=== PATIENT | male | born 1935 | race Caucasian/White ===

== ENCOUNTER 2017-03-10 08:12 | Emergency (ER) | payer MEDICARE ==
--- NOTE | 2017-03-10 10:26 | ED ---
Gladys Toney Rebecca, scribed for Ramy Mccallum MD on 03/10/17 at 0837 . Hypertension - HPI Summary HPI Summary: Pt is an 81 y/o M BIBA who comes to ED p/w asymptomatic HTN. Reports he did not want to be brought to the ED today, but he took his BP this morning upon waking up (approximately 0800) and it was elevated (240/120). Sx have been constant since onset. Sx aggravated and alleviated by nothing. Denies any complaints, including CHUN. PMHx HTN. States his HTN has been under control. Confirms he has been compliant with medication, including taking it this morning. PCP is Dr. Stephenson. - History of Current Complaint Chief Complaint: EDGeneral Stated Complaint: HIGH BP Time Seen by Provider: 03/10/17 08:29 Hx Obtained From: Patient Onset/Duration: Started Minutes Ago - About 0800 this morning Timing: Constant Reported Blood Pressure Prior To Arrival: 240/120 Aggravating Factor(s): Nothing Alleviating Factor(s): Nothing Associated Signs & Symptoms: Negative - Allergies/Home Medications Allergies/Adverse Reactions: Allergies Allergy/AdvReac Type Severity Reaction Status Date / Time No Known Allergies Allergy Verified 10/21/14 09:04 Home Medications: Home Medications Amlodipine Besylate [Norvasc 2.5 mg tab] 2.5 mg PO DAILY 03/10/17 [History Confirmed 03/10/17] PMH/Surg Hx/FS Hx/Imm Hx Endocrine/Hematology History: Denies: Hx Diabetes Cardiovascular History: Reports: Hx Hypertension Denies: Hx Coronary Artery Disease - Surgical History Surgery Procedure, Year, and Place: appendectomy age 9. right knee surgery/ meniscus age 20. torn retina. 3 hernia repairs/inguinal Infectious Disease History: No Infectious Disease History: Denies: Traveled Outside the [place] in Last 30 Days - Family History Known Family History: Positive: Hypertension - Social History Alcohol Use: "weekends ... not too much" Alcohol Amount: weekends Substance Use Type: Reports: None Smoking Status (MU): Never Smoked Tobacco Review of Systems Positive: Other - asymptomatic HTN Negative: Headache All Other Systems Reviewed And Are Negative: Yes Physical Exam - Summary Physical Exam Summary: Gen: well-appearing, no pain distress Skin: warm, color reflects adequate perfusion, dry Head: normal Eyes: EOMI, NAEEM ENT: normal Neck: supple, nontender Resp: CTA, breath sounds present Cardio: RRR Abd: soft, nontender Bowel: present Musc: normal, strength/ROM intact Neuro:sensory/motor intact, A&O x3, no focal neurological deficits. Difficulty findings words, which pt states has been chronic for multiple years. Psych: affect/mood appropriate Triage Information Reviewed: Yes Vital Signs On Initial Exam: Initial Vitals Temp Pulse Resp BP Pulse Ox 97.8 F 63 20 170/83 98 03/10/17 08:20 03/10/17 08:20 03/10/17 08:20 03/10/17 08:20 03/10/17 08:20 Vital Signs Reviewed: Yes Diagnostics - Vital Signs Vital Signs Temp Pulse Resp BP Pulse Ox 03/10/17 08:20 97.8 F 63 20 170/83 98 - Laboratory Lab Statement: Any lab studies that have been ordered have been reviewed, and results considered in the medical decision making process. National Institutes Of Health - NIH Scale Level of Consciousness: Alert/Keenly Responsive Ask Patient the Month and His/Her Age: Both Correct Ask Pt to Open/Close Eyes and Network Lead/Release Non-Paretic Hand: Both Correctly Best Gaze (Only Horizontal Eye Movement): Normal Visual Field Testing: No Visual Loss Facial Paresis-Pt to Smile & Close Eyes or Grimace Symmetry: Normal/Symmetrical Motor Function - Right Arm: No Drift-Holds 10 Seconds Motor Function - Left Arm: No Drift-Holds 10 Seconds Motor Function - Right Leg: No Drift-Holds 10 Seconds Motor Function - Left Leg: No Drift-Holds 10 Seconds Limb Ataxia-Must be out of Proportion to Weakness Present: Absent Sensory (Use Pinprick to Test Arms/Legs/Trunk/Face): Normal Best Language (Describe Picture, Name Items): Some Loss - Chornic for years, per pt Dysarthria (Read Several Words): Normal Extinction and Inattention: No Abnormality Total Score: 1 Re-Evaluation - Re-Evaluation First Eval Re-Evaluation Time: 08:48 Change: Unchanged Comment: Pt reports difficulty finding words has been chronic. He declines a Head CT and any lab work. Second Eval Re-Evaluation Time: 10:10 Change: Improved Comment: Pt is doing well. BP is currently 160/84. Confirms that he never experienced any CP, CHUN or SOB. Pt continued to decline a work up. He feels comfortable going home at this time. Hypertension Course/Dx - Course Course Of Treatment: Pt is an 81 y/o M BIBA with a CC of asymptomatic HTN this morning at home (240/120). Denies any other complaints, including CHUN. PMHx HTN for which he is compliant with medications and has had under control recently. NIH score of 1 (chronic difficulty finding words). Pt refuses a head CT and any lab work. PATIENT REPORTS NO NEW WEAKNESS/NUMBNESS/CHANGE IN SPEECH OR VISION/ CHEST PAIN/SHORTNESS OF BREATH OR OTHER SYMPTOMS WHEN HIS BLOOD PRESSURE WAS ELEVATED AT HOME. PATIENT REPORTS THE WORD FINDING DIFFICULTY IS CHRONIC; "I ALWAYS TALK LIKE THIS". DISCUSSED LAB WORK/IMAGING WITH PATIENT. HIS BLOOD PRESSURE HAD DECREASED AT THAT TIME AND PATIENT WISHED TO REST AND SEE IF HIS BP WOULD STAY DOWN AND NO PROCEED WITH ANY OTHER WORK UP. BP DID STAY DOWN AND PATIENT STAYED ASYMPTOMATIC IN ED. DISCHARGE HOME STABLE. NO CRITICAL CARE TIME. - Diagnoses Provider Diagnoses: Hypertension Discharge - Discharge Plan Condition: Stable Disposition: HOME Patient Education Materials: Hypertension (ED) Referrals: Ebenezer Wade MD [Medical Doctor] - Additional Instructions: FOLLOW UP WITH YOUR DOCTOR. TAKE YOUR BLOOD PRESSURE MEDICATIONS DIRECTED. RETURN TO THE EMERGENCY DEPARTMENT FOR ANY WORSENING OF YOUR CONDITION; CHEST PAIN, SHORTNESS OF BREATH, HEADACHE, CONFUSION, WEAKNESS OR QUESTIONS OR CONCERNS. The documentation as recorded by the Gladys king Rebecca accurately reflects the service I personally performed and the decisions made by me, Ramy Mccallum MD.
[2017-03-10 10:57] VITALS: BP 160/84
== END 2017-03-10 10:56 | disposition home or self-care (01) ==
LOC: ED 08:12
DX: I10 Essential (primary) hypertension (principal)
CPT/HCPCS: 99283

== ENCOUNTER 2017-09-04 18:34 | Inpatient (IN) | payer MEDICARE ==
[2017-09-04] MEDS ORDERED: NS 0.9% 1000 ML* 1,000 ML IV ONE ×4 (18:51→22:19)
--- NOTE | 2017-09-04 19:25 | RAD ---
INDICATION: Syncope COMPARISON: CT brain October 17, 2014 TECHNIQUE: Noncontrast axial source images were acquired from the skull base to the vertex. FINDINGS: Ventricles/sulci: The ventricles and cisterns are normal in size and configuration for age. Brain parenchyma: There is mild periventricular and subcortical white matter change compatible with chronic ischemia. Intracranial hemorrhage:None. Extra-axial spaces: There are no abnormal extra axial fluid collections or evidence of extra-axial mass. Calvarium: There is no calvarial fracture or other calvarial abnormality. Scalp: There is no evidence of scalp or extracalvarial soft tissue abnormality. Paranasal sinuses/mastoid: The paranasal sinuses and mastoid air cells are clear. Other: None. IMPRESSION: Mild chronic microvascular ischemic changes. No acute findings
[2017-09-04 19:29] LABS: Hematocrit 43 % (42-52); Hemoglobin 14.1 g/dl (14.0-18.0); Mean Corpuscular HGB Conc 33 g/dl (31-36); Mean Corpuscular Hemoglobin 30 pg (27-31); Mean Corpuscular Volume 91 fL (80-94); Mean Platelet Volume 8 um3 (7.4-10.4); Red Blood Count 4.69 10^6/ul (4.0-5.4); Red Cell Distribution Width 14 % (10.5-15); White Blood Count 15.3 10^3/ul (3.5-10.8)
--- NOTE | 2017-09-04 19:36 | RAD ---
INDICATION: Syncope COMPARISON: None TECHNIQUE: An AP seated view is submitted. FINDINGS: Bones/Soft Tissues: There are no acute bony findings. Cardiomediastinal: The cardiomediastinal silhouette is normal. Lungs: There are no infiltrates. There is mild hyperinflation Pleura: There are no pleural effusions. Other: None IMPRESSION: HYPERINFLATION. NO ACTIVE DISEASE.
[2017-09-04 19:44] LABS: Albumin 3.9 g/dL (3.2-5.2); BUN/Creatinine Ratio 21.1 (8-20); C Reactive Protein 15.23 mg/L (< 5.00); Calcium 9.4 mg/dL (8.6-10.3); EGFR African American 32.6 (>60); EGFR Non-African American 25.4 (>60); Globulin 2.9 g/dL (2-4); Potassium 3.8 mmol/L (3.5-5.0); Total Bilirubin 0.9 mg/dL (0.2-1.0); Total Protein 6.8 g/dL (6.4-8.9)
[2017-09-04 19:46] LABS: Troponin I 0.13 ng/mL (<0.04)
[2017-09-04 21:21] LABS: Urine Bacteria Absent (Absent); Urine Bilirubin Negative (Negative); Urine Glucose Negative (Negative); Urine Nitrite Negative (Negative)
--- NOTE | 2017-09-04 21:26 | RAD ---
INDICATION: 81-year-old with syncope. Possible neck injury. COMPARISON: None TECHNIQUE: Noncontrast axial source images was performed from the skull base to the thoracic inlet. Coronal and and sagittal reformatted images were generated. FINDINGS: Vertebrae: There is no fracture or acute focal bony lesion. There is minor degenerative changes with minor disc space narrowing with endplate sclerosis at C5-C7. Alignment: The craniocervical junction appears normal. The cervical vertebrae are normally aligned. Central Canal: There are no significant CT abnormalities of the central canal or foramina. MR imaging is a more sensitive method to evaluate the canal and foramina. Intervertebral disc spaces: The remaining disc spaces are maintained. Brain: The visualized brain appears unremarkable. Soft tissues: The visualized soft tissue elements of the neck are unremarkable. The prevertebral soft tissues appear normal. The lung apices are clear. IMPRESSION: NO ACUTE CT FINDINGS.
--- NOTE | 2017-09-04 21:29 | RAD ---
INDICATION: Syncope. Possible back injury COMPARISON: None TECHNIQUE: Noncontrast axial source images was performed from the thoracolumbar junction to the sacrum. Coronal and and sagittal reformatted images were generated. FINDINGS: Vertebrae: There is no fracture or acute focal bony lesion. There is underlying osteopenia. There are mild degenerative changes with multilevel intervertebral disc calcification and mild vacuum disc phenomena with narrowing at L4-L5 and L5-S1. There is marginal osteophyte formation at L4 and L5 Alignment: Minor dextroscoliosis of the lower lumbar spine. Minor lumbar spine straightening. Central Canal: There are no significant CT abnormalities of the central canal or foramina. MR imaging is a more sensitive method to evaluate the canal and foramina. Intervertebral disc spaces: The remaining disc spaces are maintained. Soft tissues: The paravertebral soft tissues are normal. Other: None IMPRESSION: NO ACUTE CT FINDINGS. MILD DEGENERATIVE DISC DISEASE/OSTEOARTHRITIS.
--- NOTE | 2017-09-04 21:30 | RAD ---
INDICATION: Syncope. Possible back injury COMPARISON: None TECHNIQUE: Noncontrast axial source images was performed from the thoracic inlet to the level the hemidiaphragms. Coronal and and sagittal reformatted images were generated. FINDINGS: Vertebrae: There is no fracture or acute focal bony lesion. There are minor age-related osteoarthritic changes. Alignment: There mild upper thoracic spine kyphosis. Central Canal: There are no significant CT abnormalities of the central canal or foramina. MR imaging is a more sensitive method to evaluate the canal and foramina. Intervertebral disc spaces: The disc spaces are maintained. Soft tissues: There are no paravertebral soft tissue abnormalities. IMPRESSION: NO ACUTE CT FINDINGS.
--- NOTE | 2017-09-04 21:49 | ED ---
Louise Toney Alfonso, scribed for Yamilet Rausch MD on 09/04/17 at 1848 . Complex/Multi-Sys Presentation - HPI Summary HPI Summary: LEVEL 5 CAVAET DUE TO UNRESPONSIVE STATUS. This patient is an 81 year old M BIBA to [facility] for unresponsive status noted by police and EMS earlier today. He was found slumped over and drooling in a chair by police. Police presented at the house because his car was left in a pharmacy parking lot for a few days. Symptoms aggravated and alleviated by nothing. Patient responses to painful stimuli. , with dementia and Parkinson's, reports the patient was last noted well yesterday. This patient takes care of his . - History Of Current Complaint Chief Complaint: EDAltMentalStatus Hx Obtained From: EMS Hx From Patient Unobtainable Due To: Other - Unresponsive Onset/Duration: Still Present Timing: Constant Aggravating Factor(s): nothing Alleviating Factor(s): nothing Associated Signs And Symptoms: Positive: Other - Patient response to painful stimuli. - Allergies/Home Medications Allergies/Adverse Reactions: Allergies Allergy/AdvReac Type Severity Reaction Status Date / Time No Known Allergies Allergy Verified 10/21/14 09:04 Home Medications: Home Medications Doxazosin Mesylate [Cardura] 8 - 16 mg PO DAILY 09/04/17 [History Confirmed ] amLODIPine TAB* [Norvasc 5 mg TAB*] 2.5 mg PO DAILY 09/04/17 [History Confirmed 09/04/17] PMH/Surg Hx/FS Hx/Imm Hx Endocrine/Hematology History: Denies: Hx Diabetes Cardiovascular History: Reports: Hx Hypertension Denies: Hx Coronary Artery Disease Opthamlomology History: Denies: Hx Legally Blind EENT History: Denies: Hx Deafness - Surgical History Surgery Procedure, Year, and Place: appendectomy age 9. right knee surgery/ meniscus age 20. torn retina. 3 hernia repairs/inguinal Infectious Disease History: No Infectious Disease History: Denies: Traveled Outside the [place] in Last 30 Days - Family History Known Family History: Positive: Hypertension - Social History Alcohol Use: "weekends ... not too much" Alcohol Amount: weekends Hx Substance Use: No Substance Use Type: Reports: None Hx Tobacco Use: No Smoking Status (MU): Never Smoked Tobacco Review of Systems Negative: Fever Neurological: Other - Unresponsive status, response to painful stimuli. All Other Systems Reviewed And Are Negative: No Physical Exam - Summary Physical Exam Summary: VITAL SIGNS: Reviewed. GENERAL: Patient is an elderly and nourished male who is lying comfortable in the stretcher. Patient is not in any acute respiratory distress. HEAD AND FACE: No signs of trauma. No ecchymosis, hematomas or skull depressions. No sinus tenderness. EYES: PERRLA, EOMI x 2, No nystagmus. Ptosis with some injected conjunctiva in the right eye. EARS: Hearing grossly intact. Ear canals and tympanic membranes are within normal limits. MOUTH: Oropharynx within normal limits. NECK: Supple, trachea is midline, no adenopathy, no JVD, no carotid bruit, no c- spine tenderness, neck with full ROM. CHEST: Symmetric, no tenderness at palpation LUNGS: Clear to auscultation bilaterally. No wheezing or crackles. CVS: Regular rate and rhythm, S1 and S2 present, no murmurs or gallops appreciated. ABDOMEN: Soft, non-tender. No signs of distention. No rebound no guarding, and no masses palpated. Bowel sounds are normal. BACK: T and L spine tenderness. EXTREMITIES: FROM in all major joints, no cyanosis or clubbing. Bilateral LE edema +1. NEURO: Alert and unresponsive. No acute neurological deficits. Speech is normal and follows commands. Babinskis bilaterally upward. SKIN: Dry and warm. Left upper thigh large area of erythema. Triage Information Reviewed: Yes Vital Signs On Initial Exam: Initial Vitals Temp Pulse Resp BP Pulse Ox 97.2 F 89 13 148/85 100 09/04/17 18:40 09/04/17 18:40 09/04/17 18:40 09/04/17 18:40 09/04/17 18:40 Vital Signs Reviewed: Yes Completion Of Physical Exam Limited Due To: Level 5 Diagnostics - Vital Signs Vital Signs Temp Pulse Resp BP Pulse Ox 09/04/17 18:40 97.2 F 89 13 148/85 100 - Laboratory Result Diagrams: 09/04/17 19:07 09/04/17 19:07 Lab Statement: Any lab studies that have been ordered have been reviewed, and results considered in the medical decision making process. - Radiology CXR Radiology Interpretation Completed By: Radiologist - HYPERINFLATION. NO ACTIVE DISEASE. ED physician has reviewed this radiology report and agrees. - CT Brain CT Interpretation Completed By: Radiologist - Mild chronic microvascular ischemic changes. No acute findings. ED physician has reviewed this radiology report and agrees. C-Spine CT Interpretation Completed By: Radiologist - NO ACUTE CT FINDINGS. ED physician has reviewed this radiology report and agrees. T-Spine CT Interpretation Completed By: Radiologist - NO ACUTE CT FINDINGS. ED physician has reviewed this radiology report and agrees. L-Spine CT Interpretation Completed By: Radiologist - NO ACUTE CT FINDINGS. MILD DEGENERATIVE DISC DISEASE/OSTEOARTHRITIS. ED physician has reviewed this radiology report and agrees. - EKG 190 Cardiac Rate: NL EKG Rhythm: Sinus Rhythm - 91 BPM EKG Interpretation: RBBB Complex Multi-Symp Course/Dx Assessment/Plan: In the ED course the patient was given IV fluids and sodium bicarbonate. Consulted Dr. Villanueva (hospitalist) at 2144 who agrees to admit. Patient will be admitted with follow up from hospitalist. The patient is agreeable with this plan. - Diagnoses Provider Diagnoses: Rhabdomyolysis, Dehydration, Acute renal insufficiency, Unresponsive Discharge - Discharge Plan Condition: Stable Disposition: ADMITTED TO [facility] Referrals: Juwan Stephenson DO [Primary Care Provider] - The documentation as recorded by the Louise king Alfonso accurately reflects the service I personally performed and the decisions made by Miracle peralta Abdul, MD.
[2017-09-04] MEDS ORDERED: Sodium Bicarbonate 8.4% IV* 100 MEQ in NS 0.45% 1000 ML BAG* 1,000 ML IV ONE (22:00)
[2017-09-04] MEDS ORDERED: Ondansetron INJ* 2 MG/ML VIAL IV PRN (22:08)
[2017-09-04] MEDS ORDERED: Docusate CAP* 100 MG PO PRN (22:08)
[2017-09-04] MEDS ORDERED: Acetaminophen TAB* 325 MG PO PRN (22:08)
[2017-09-04] MEDS ORDERED: Senna TAB PO PRN (22:08)
[2017-09-04] MEDS ORDERED: levETIRAcetam IV* 750 MG in NS 0.9% 100 ML* 100 ML IVPB ONE (22:12)
[2017-09-04] MEDS ORDERED: Aspirin SUPP* 300 MG PR ONE (22:12)
[2017-09-04] MEDS ORDERED: Piperacillin/Tazobac ADVAN(*) 3.375 GM in NS 0.9% 100 ML* 100 ML IVPB ONE (22:18)
[2017-09-04] MEDS ORDERED: LEVETIRACETAM IVPB ONE (23:00)
[2017-09-04] MEDS ORDERED: Zosyn per Pharmacy* NOTE FOLLOW UP SCH (23:00)
[2017-09-04] MEDS ORDERED: [UNRECOGNIZED DRUG - OTHER] IVPB ONE (23:00)
[2017-09-04 23:28] LABS: Magnesium 2.6 mg/dL (1.9-2.7)
[2017-09-04 23:48] LABS: PCO2 Arterial 34 mmHg (35-45)
[2017-09-04 23:54] LABS: TSH (Thyroid Stimulating Horm) 4.79 mcIU/mL (0.34-5.60)
--- NOTE | 2017-09-05 01:43 | HP ---
CC: Juwan Stephenson DO * HISTORY AND PHYSICAL: DATE OF ADMISSION: 09/04/17. TIME OF EVALUATION: 2100. PRIMARY CARE PHYSICIAN: Juwan Stephenson DO CHIEF COMPLAINT: Altered mental status. HISTORY OF PRESENT ILLNESS: This is an 81-year-old male with past medical history of hypertension and question of dementia, who presented to the emergency room via EMS after police found him unresponsive in his chair. Patient is unable to answer any questions. The history is obtained from the ER staff, EMS, the son, which according to the son the patient has declined and they have been concerned about him and his at home living independently. The usually takes care of the who has Parkinson's and dementia. The son, who is in [place], who is the healthcare proxy, feels that the patient's dementia has gotten worse. It appears that patient drove to the pharmacy about a week ago and it appears that he walked home, then the pharmacy had police look into the car that was left in the parking lot. The police went and checked on him a week ago. He was alert and oriented, but they were concerned about how his home was being maintained and they recommended he go to the emergency room. He refused. The car remained in the parking lot. The pharmacy again called the police to have it towed. The police recognized that this was the same elderly couple, went back to their home, went into the home, they found the patient in the chair sitting upright unresponsive, labored and shallow breathing with a thready pulse. The was also there as well and they brought both into the emergency room for further evaluation. On my encounter, the patient is able to open his left eye, keeps the right eye closed and then he does repetitive eye blinking. He is able to say yes to me, but then is not able to follow any commands or any further verbal interaction. In the emergency room, the patient had labs, imaging. He was given 2 L of normal saline and was referred to the hospitalist service for further evaluation. PAST MEDICAL HISTORY: Per the records, hypertension, history of diverticulosis , history of right inguinal hernia, and the question of history of dementia. MEDICATIONS: Per records. 1. Amlodipine 2.5 mg daily. 2. Cardura 8 to 16 mg daily. ALLERGIES: No known drug allergies. FAMILY HISTORY: Unable to obtain. SOCIAL HISTORY: Limited. We do know he lives at home with his who supposedly he takes care of. He has been independent of his ADLs. His son, Archie Schwartz, is in [place], who is the healthcare proxy. He is faxing all the paper-work over. His phone number is [phone]. He did relay that his father and his mother are both DNR/DNI. MOLST form will be completed this evening. REVIEW OF SYSTEMS: Unable to obtain due to the patient's altered mental status. PHYSICAL EXAMINATION GENERAL: No acute distress, does awake to voice, will open his left eye, but unable to follow any commands or answer any questions appropriately. VITAL SIGNS: Temp 97.2, heart rate 90, respiratory rate 15, oxygen saturation 100% on 4 L, blood pressure 148/85. HEENT: Head normocephalic. Pupils are 2 mm and sluggish. His right eye needs to be opened. He has a more opacified right eye. Oropharynx: Mucous membranes are dry. NECK: Supple. No lymphadenopathy. RESPIRATORY: Diminished breath sounds. Limited respiratory effort. CARDIAC: Regular rate and rhythm. Soft systolic murmur heard throughout. ABDOMEN: Positive bowel sounds. Soft, nontender, nondistended. EXTREMITIES: Warm, trace edema, +1 DPs. NEUROLOGIC: As mentioned. The patient does repetitive eye squeezing and some rhythmic mouth movement. Will open his left eye and has verbalized yes to me and has responded to his name. Did not make any eye contact, has not made any spontaneous lower extremity movement. His right hand seems more contracted than his left. DERM: Per nursing staff, he has a right buttock ulcer and bilateral elbow skin breakdown. LABORATORY DATA: White count 15.3, hemoglobin 14.1, hematocrit 43, platelets 180. INR 0.99. Sodium 142, potassium 3.8, chloride 106, bicarb 24, BUN 52, creatinine 2.46, glucose 147. Lactic acid 3.4. AST 158, ALT 95. Total CK 5035. Troponin 0.13. CRP 15. Amylase 136. Urine; trace ketones, +3 blood, present squamous cells. RADIOGRAPHIC DATA: Head CT, mild chronic microvascular ischemic changes. No acute findings. Chest x-ray; hyperinflation, no active disease. Cervical spine CT; no acute CT findings, mild degenerative disk disease, osteoarthritis. Thoracic spine CT, no acute CT findings. EKG shows normal sinus rhythm with artifact noted. ASSESSMENT: This is an 81-year-old male with a past medical history of hypertension, question dementia, who was found at home unresponsive, presents with significant altered mental status, concern for a stroke and possible seizure activity. 1. Altered mental status. Assessment: As above. Concern for stroke and possible seizure like activity. I did speak with Dr. Montilla who recommended loading him with Keppra x1 at 750 mg. We will order an MRI and EEG in the morning as well as neuro checks. We will also check an ammonia and ABG to rule out any underlying causes that may be contributing to his altered mental status. We will place him in the ICU for close monitoring. We will start him on aspirin suppositories, keep him NPO until he is safe to have swallow evaluation and follow up with Neurology in the morning. We will also put him for PT and OT once he is more stable. We will also place him on seizure precautions. 2. Acute kidney injury and rhabdo. Assessment: Likely from being unresponsive at minimum 2 to 3 days. Plan: He has gotten 2 L of normal saline. We will continue another liter and place him on normal saline at 150 cc an hour and repeat his labs in the morning. Renally dose his meds. 3. Elevated troponin. Assessment: Suspect this is demand ischemia in the setting of his unresponsive state for several days. Plan: We will trend his troponins and check an echo in the morning. 4. Leukocytosis. Concern for an underlying infectious etiology with being unresponsive for several days. Plan: We will cover him empirically with Zosyn for now until urine and blood cultures are back and continue IV fluids. 5. FEN: As mentioned, keep him NPO. If he becomes more awake, we will do a bedside swallow and IV fluids. 6. DVT prophylaxis: The patient scores high risk. We will place him on heparin subcu t.i.d. CODE STATUS: I did speak with the son, Archie Schwartz, who stated that he is a DNR/DNI. We will place a social work consult as well in the setting of both the patient and his are now inpatients because the cannot be cared for at home. The son is planning to arrive here tomorrow evening from [place]. TIME SPENT: Patient time, greater than 60 minutes was spent doing history and physical, more than half the time spent in direct patient contact with critical care time. Patient is being admitted to the ICU with complex medical problems. [id number]/CPS #: [id number] JOLLY
[2017-09-05] MEDS: ZOSYN 3.375 GM Q8H per EXTENDED INFUSION IVPB SCH ×4 (03:31→11:45)
[2017-09-05] MEDS: NS 0.9% 1000 ML* 1,000 ML IV SCH (06:00)
[2017-09-05] MEDS: Heparin VIAL(*) 5000 UNITS/ML VIAL (FIVE THOUSAND) SUBCUT SCH ×3 (06:00→22:03)
[2017-09-05 06:53] LABS: Hematocrit 42 % (42-52); Mean Corpuscular HGB Conc 34 g/dl (31-36); Mean Corpuscular Hemoglobin 30 pg (27-31); Mean Corpuscular Volume 90 fL (80-94); Mean Platelet Volume 7 um3 (7.4-10.4); Red Blood Count 4.61 10^6/ul (4.0-5.4); Red Cell Distribution Width 14 % (10.5-15); White Blood Count 15.5 10^3/ul (3.5-10.8)
[2017-09-05 07:09] LABS: Albumin 2.9 g/dL (3.2-5.2); BUN/Creatinine Ratio 25.7 (8-20); Calcium 8.5 mg/dL (8.6-10.3); EGFR African American 34.1 (>60); EGFR Non-African American 26.5 (>60); Globulin 2.5 g/dL (2-4); Potassium 3.8 mmol/L (3.5-5.0); Total Protein 5.4 g/dL (6.4-8.9)
[2017-09-05] MEDS ORDERED: Perflutren Lipid Microsphere* 3 ML VIAL ONE (08:11)
--- NOTE | 2017-09-05 09:52 | ECHO ---
Patient: [facility] Rec#: [id number] : 1935 Date: 09/05/2017 Age: 81y Height: 182.88 cm / 72.0 in Weight: 77.11 kg / 170.0 lbs Sex: M BSA: 1.99 Room#: [facility] Admit Date#: 09/04/2016 Type: Inpatient Referring: Jyalin Villanueva Reading: Shagufta Hilario MD Cyberathlete: Adela Connell FREDDY CC: Seema MCCARTHY,Juwan Transthoracic Echocardiogram Indication: Elevated Troponin BP: 121/86 HR: 83 Rhythm: NSR with PVCs Findings History: Found unresponsive at home,?history of dementia,HTN. Technical Comments: The study quality is fair. Completed at 0855. Left Ventricle: The left ventricular chamber size is normal. Mild concentric left ventricular hypertrophy is observed. The left ventricle appears hyperdynamic. The estimated ejection fraction is 60-65%. Abnormal left ventricular diastolic filling is observed, consistent with impaired relaxation. Left Atrium: The left atrial cavity size is abnormally small. Right Ventricle: The right ventricular cavity size is normal. The right ventricular global systolic function is normal. Right Atrium: The right atrial cavity size is normal. Aortic Valve: The aortic valve is trileaflet. There is no evidence of aortic regurgitation. There is no evidence of aortic stenosis. Mitral Valve: The mitral valve leaflets are mildly thickened. There is no evidence of mitral regurgitation. Tricuspid Valve: The tricuspid valve leaflets are normal. There is mild tricuspid regurgitation. There is evidence of mild pulmonary hypertension. There is no tricuspid stenosis. Pulmonic Valve: The pulmonic valve appears normal. There is trace to mild pulmonic regurgitation. There is no pulmonic stenosis. Pericardium: The pericardium appears normal. Aorta: There is no dilatation of the ascending aorta. The aortic arch is not well visualized. There is moderate dilatation of the aortic root. Pulmonary Artery: The main pulmonary artery appears normal. Venous: The inferior vena cava appears normal in size. There is an approximate 50% respiratory change in the inferior vena cava dimension. Pt unable to cooperate with sniff maneuver. Contrast: Definity was used to optimize study. 3 ml used. Intravenous contrast was used to enhance endocardial border definition. Conclusions Mild concentric left ventricular hypertrophy is observed. The left ventricle appears hyperdynamic. The estimated ejection fraction is 60-65%. Abnormal left ventricular diastolic filling is observed, consistent with impaired relaxation. The right ventricular global systolic function is normal. There is mild tricuspid regurgitation. There is evidence of mild pulmonary hypertension: 39 mmHg. No prior echo to compare. Measurements Name Value Normal Range RVIDd (AP) 2D 2.5 cm (0.9 - 2.6) RVDdMajor (2D) 3.3 cm (2.2 - 4.4) RAd ISD 4CH 5.3 cm (3.4 - 4.9) RA (A4C)W 4.5 cm (2.9 - 4.6) IVSd (2D) 1.5 cm (0.6 - 1) LVPWd (2D) 1 cm (0.6 - 1) LVIDd (2D) 3.7 cm (3.6 - 5.4) LVIDs (2D) 2.4 cm - LV FS (2D) 36 % (25 - 45) Aortic Annulus 2.2 cm (1.4 - 2.6) Ao root diameter (2D) 4.3 cm (2.1 - 3.5) Ascending Ao 3.4 cm (2.1 - 3.4) LA dimension (AP) 2D 1.9 cm (2.3 - 3.8) LAd ISD 4CH 4.5 cm (2.9 - 5.3) LA ISD 4CH W 3.7 cm (2.5 - 4.5) Name Value Normal Range LA ESV SP 4CH (A/L) 49 ml - LA ESV SP 2CH (A/L) 54 ml - LA ESV BP (A/L) 58 ml - LA ESV BP (A/L) index 29.18 ml/m2 - LA ESV SP 4CH (MOD) 44 ml - LA ESV SP 2CH (MOD) 49 ml - Name Value Normal Range MV E-wave Vmax 0.4 m/sec - MV deceleration time 253 msec - MV A-wave Vmax 0.7 m/sec - MV E:A ratio 0.63 ratio - LV septal e' Vmax 0.06 m/sec - LV lateral e' Vmax 0.08 m/sec - LV E:e' septal ratio 6.67 ratio - LV E:e' lateral ratio 4 ratio - Name Value Normal Range AV Vmax 1.3 m/sec - AV VTI 26.6 cm - AV peak gradient 4.85 mmHg - AV mean gradient 3.69 mmHg - LVOT Vmax 0.8 m/sec - LVOT VTI 19 cm - LVOT peak gradient 2.23 mmHg - LVOT mean gradient 1.18 mmHg - Name Value Normal Range TR Vmax 2.8 m/sec - TR peak gradient 31 mmHg - RAP 8 mmHg - RVSP 39 mmHg - IVC diameter 1.1 cm - Name Value Normal Range PV Vmax 0.8 m/sec - PV peak gradient 2.86 mmHg -
--- NOTE | 2017-09-05 10:01 | PN ---
Subjective Date of Service: 09/05/17 Interval History: Patient seen this morning. Continues to be unresponsive. Family History: Unchanged from Admission Social History: Unchanged from Admission Past Medical History: Unchanged from Admission Objective Active Medications: Acetaminophen (Tylenol Tab*) 650 mg PO Q4H PRN Aspirin (Aspirin Supp*) 300 mg [place] DAILY EVAN Docusate Sodium (Colace Cap*) 100 mg PO BID PRN Heparin Sodium (Porcine) (Heparin Vial(*)) 5,000 units SUBCUT Q8HR EVAN Sodium Chloride (Ns 0.9% 1000 Ml*) 1,000 mls @ 150 mls/hr IV PER RATE EVAN Piperacillin Sod/Tazobactam (Sod 3.375 gm/ Sodium Chloride) 100 mls @ 25 mls/ hr IVPB Q8H EVAN Piperacillin Sod/Tazobactam (Sod 3.375 gm/ Sodium Chloride) 100 mls @ 25 mls/ hr IVPB Q8H EVAN Piperacillin Sod/Tazobactam (Sod 3.375 gm/ Dextrose) 100 mls @ 25 mls/hr IVPB Q8H EVAN Ondansetron HCl (Zofran Inj*) 4 mg IV Q4H PRN Pharmacy Consult (Zosyn Per Pharmacy*) 1 note FOLLOW UP .ZOSYN PER PHARMACY EVAN Senna (Senokot Tab*) 1 tab PO BID PRN Vital Signs 09/04/17 09/04/17 09/04/17 23:00 23:03 23:30 Temperature Pulse Rate 87 85 81 Respiratory 10 10 13 Rate Blood Pressure 148/84 151/88 (mmHg) O2 Sat by Pulse 99 100 99 Oximetry 09/04/17 09/05/17 09/05/17 23:58 00:00 00:11 Temperature 97.5 F 94.6 F Pulse Rate 84 85 92 Respiratory 11 8 16 Rate Blood Pressure 129/81 129/81 (mmHg) O2 Sat by Pulse 96 97 96 Oximetry 09/05/17 09/05/17 09/05/17 08:00 08:59 09:00 Temperature 98.4 F 98.4 F Pulse Rate 73 77 Respiratory 13 22 17 Rate Blood Pressure 130/82 135/77 (mmHg) O2 Sat by Pulse 100 96 Oximetry Oxygen Devices in Use Now: None Appearance: Elderly, M, laying in bed, unresponsive to voice or sternal rub Eyes: No Scleral Icterus Ears/Nose/Mouth/Throat: - - Dry MM Neck: - - Enlarged thyroid Respiratory: Symmetrical Chest Expansion and Respiratory Effort, Clear to Auscultation Cardiovascular: NL Sounds; No Murmurs; No JVD, RRR Abdominal: NL Sounds; No Tenderness; No Distention Lymphatic: No Cervical Adenopathy Extremities: - - Mild LE pitting edema to mid-shins Skin: No Rash or Ulcers Neurological: - - Unresponsive, pupils reactive, corneal reflex intact, withdraws to pain in LEs, could not get to withdraw to upper extremities, no posturing Lines/Tubes/Other Access: Clean, Dry and Intact Griffiths Result Diagrams: 09/05/17 06:25 09/05/17 06:25 Microbiology and Other Data: Microbiology 09/05/17 01:10 Nasal Screen MRSA (PCR)(ANURAG) - Final Nasal Mrsa Negative Assess/Plan/Problems-Billing Assessment: 81 yo M with reported hx of HTN and possibly dementia found unresponsive at home , found to have EDELMIRA, troponin elevation, rhabdo, lactic acidosis, remains unresponsive, withdraws to pain - Patient Problems (1) Unresponsive state Current Visit: Yes Comment: Apprecaite Neuro input. Concern for possible ischemic event, ?brain stem. Will order clearance plain films to expedite brain MRI. Prelim EEG without clear epileptiform activity. Thyroid enlarged but TSH WNL. Recived Keppra x 1. Continue ASA suppository, continue NPO. After MRI will be able to plan further. Only centrally acting med that is on at home is Oxybutynin. (2) EDELMIRA (acute kidney injury) Current Visit: Yes Comment: Rhabdo. CKs continue to climb. BUN/Cr largely unchanged. Continue IVF, griffiths cath. Monitor CK, BMP daily (3) Troponin level elevated Current Visit: Yes Comment: Mild elevation, likely demand from prolonged unresponsive episode. Echo pending. (4) Leukocytosis Current Visit: Yes Comment: No clear infectious etiology, will continue ABx for the time being. (5) HTN (hypertension) Current Visit: Yes Comment: Reported hx as per daughter. Monitor for now. (6) DVT prophylaxis Current Visit: Yes Comment: HSQ Status and Disposition: Dispo pending MRI
--- NOTE | 2017-09-05 10:51 | RAD ---
INDICATION: MRI clearance COMPARISON: None TECHNIQUE: 2 views the abdomen were obtained. FINDINGS: There are no acute bony or soft tissue abnormalities. Metallic material in the right hemipelvis is most consistent with surgical material. A linear metallic device at the midline pelvis extending below the field of view is most consistent with either a rectal tube or [place] catheter. The bowel gas pattern is normal. There is a moderate amount of stool overlying the renal shadows. There are no obvious coarse calcifications overlying the expected location of the bilateral collecting systems or ureters. IMPRESSION: IATROGENIC DEVICES IN THE LOW ABDOMEN DESCRIBED ABOVE.
--- NOTE | 2017-09-05 10:54 | RAD ---
INDICATION: MRI clearance in a nonverbal patient. COMPARISON: Chest x-ray dated September 04, 2017 TECHNIQUE: Single AP view of the chest was obtained. FINDINGS: The heart and mediastinum exhibit normal size and contour. The lungs are grossly clear. There is no evidence of a large pleural effusion. Visualized bones are normal for the patient's age. IMPRESSION: No radiographic evidence for acute cardiopulmonary abnormality on this single AP view chest x-ray. No metallic devices are seen overlying the chest.
--- NOTE | 2017-09-05 10:55 | RAD ---
Indication: MRI screening Comparison: None. Technique: 2 views of the skull were obtained. Report: The calvarium appears normal in morphology and density. No fractures are identified. Within limitations of skull radiography, the paranasal sinuses appear adequately aerated. Aside from dental amalgam, no metallic material is seen. IMPRESSION: Aside from dental amalgam there is no metallic material overlying the skull.
[2017-09-05] MEDS: Aspirin SUPP* 300 MG PR SCH (11:25)
--- NOTE | 2017-09-05 11:34 | CONS ---
CC: Dr. Stephenson * CONSULTATION REPORT: DATE OF CONSULT: 09/05/17 PATIENT OF: Dr. Villanueva. HISTORY OF PRESENT ILLNESS: This is an 81-year-old man I am asked to evaluate for altered mental status and quadriparesis. History is from Dr. Villanueva last night and from the chart, the patient is unresponsive. The patient has a past history of hypertension and possible dementia and was found in his chair at his home. 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 The pharmacy had police look into the car that was left in the parking lot and the police checked on him a week prior to admission. He was alert and oriented at that point, but they were concerned about how his home is being maintained and they recommended that he go to the ER. He refused. The car remained in the parking lot and when the police were contacted to have a totally checked into his house, he was found in his chair sitting unresponsive with labored and shallowed breathing and he was brought to the emergency room. The was there as well. When he was seen in the ER, he was able to open his left eye. His right eye was closed and he had some repetitive eye blinking. He was able to say yes, but had no specific commands. PAST MEDICAL HISTORY: He has a history of hypertension, possible dementia, history of diverticulosis, and right inguinal hernia. MEDICATIONS: His medications per chart include: 1. Amlodipine 2.5 daily. 2. Cardura 8 to 16 mg daily. ALLERGIES: He has no known allergies. FAMILY HISTORY: Unable to be obtained. 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 His son is the healthcare proxy. REVIEW OF SYSTEMS: Unable to be obtained. PHYSICAL EXAM: Temperature 98.8, pulse 78, respirations 15, blood pressure 131/ 84. His eyes were closed and he did not respond to name or noxious stim either side. Pupils were 2 and sluggish. He did not have any clear nystagmus, but at times but not constantly his eyes would adjust. There was at times some mild varieties of tropia and other times is mild left esotropia and at times his eyes would slowly go over to one side of the other, but much of the time they were midposition. Reflexes were present bilaterally. He had corneal and facial grimace. He had shallow breathing and he had some mouthing. He occasionally would move his mouth. There was no clear facial asymmetry, but this was hard to assess fully given his limited movements. He had no movement of arms and legs. He had positive Babinski's bilaterally. Reflexes were 1 and equal. Chest: Clear. Cardiovascular: Regular rate and rhythm. Abdomen: Soft with positive bowel sounds. He has trace edema. He had a right buttocks ulcer per nursing staff. DIAGNOSTIC STUDIES/LAB DATA: His CT scan was reviewed and showed mild chronic small vessel ischemic changes. CT scan of his C-spine showed no significant problems with his central canal and there were no acute findings. Thoracic spine showed no acute findings and no problems with the central canal. He has some mild degenerative disk disease in his lumbar spine. Blood work is similar this morning as to on admission, his sodium current is 147 , chloride 115. His anion gap when he first presented was 12. His BUN today is 61, creatinine 2.37, glucose 115. His initial lactic acid is 3.4, but on repeat it was 1.8. His calcium is 8.5. He has an AST of 218, ALT of 113 slightly rising since yesterday. His ammonia level is 45. His CPK is 7917 this morning compared to 5035 on admission. His troponin 0.16 and his total protein is 5.4, albumin 2.9, amylase is 136, lipase 15, TSH 4.79. ABG, pH 7.43 , pCO2 34, pO2 73 on admission. Normal INR and PTT. CMP had absent bacteria, present hyaline cast. His white count 15.5, his hematocrit 42, platelets 147. His EEG is currently being done, it shows a generalized slowing with some frontal dominant sharp waves that are sporadic, but so far no clear subclinical seizures. He did receive Keppra last night. IMPRESSION AND PLAN: Mr. Schwartz has had a severe encephalopathy as well as absence of movement in all extremities other than typical withdrawal presumably from spinal reflex in his legs. This picture would either be secondary to diffuse generalized cerebral dysfunction or possibly due to brainstem dysfunction causing bilateral symptoms and significant alteration of consciousness. He does not have significant fever or his white count is not that elevated. I think that it is more likely for this to be ischemic rather than infectious. Blood workup is still in progress. He is getting piperacillin as well as Zosyn and is getting rectal aspirin. We will get an MRI scan of his brain this morning and if decide on further workup depending on that, it is possible that he could have had a diffuse events such as a cardiac arrest that had diffuse hypoxic ischemic encephalopathy that may not show up on his MRI scan. However, I think it may be more likely that his brainstem is involved since there is a discrepancy between how much he can move his face versus the rest of his body, but we need to await further testing to be more sure of things. Thank you for sharing his case. [id number]/[facility] #: [id number] JOLLY
--- NOTE | 2017-09-05 16:38 | RAD ---
Indication: Confusion, stroke. Sagittal and axial T1, axial T2, FLAIR, diffusion and susceptibility weighted images of the brain were obtained. There is restriction of diffusion in several areas throughout both cerebral cortices. This is predominantly in the frontal lobes, parietal lobes posteriorly extending into both occipital lobes. This is suggestive of cortical necrosis and is likely due to a generalized process such is hypoperfusion in a watershed area from hypotension, cardiac arrest or status epilepticus. It could also be seen in hyperammonemic encephalopathy. The brainstem and cerebellum demonstrates no evidence of signal abnormality. No midline shift is noted. Periventricular signal abnormality consistent with chronic ischemic White matter change is noted. The paranasal sinuses, mastoid air cells are unremarkable. IMPRESSION: Fairly symmetric restriction of diffusion primarily involving the cortices of the frontal lobes, posterior parietal lobes and occipital lobes bilaterally. 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
[2017-09-05] MEDS: Piperacillin/Tazobac ADVAN(*) 3.375 GM in D5W 100 ML BAG* 100 ML IVPB SCH (20:30)
[2017-09-06] MEDS: NS 0.9% 1000 ML* 1,000 ML IV SCH (02:43)
[2017-09-06] MEDS: Piperacillin/Tazobac ADVAN(*) 3.375 GM in D5W 100 ML BAG* 100 ML IVPB SCH ×2 (03:54→11:55)
[2017-09-06 05:07] LABS: Hematocrit 35 % (42-52); Hemoglobin 12.1 g/dl (14.0-18.0); Mean Corpuscular HGB Conc 34 g/dl (31-36); Mean Corpuscular Hemoglobin 31 pg (27-31); Mean Corpuscular Volume 90 fL (80-94); Mean Platelet Volume 8 um3 (7.4-10.4); Red Blood Count 3.96 10^6/ul (4.0-5.4); Red Cell Distribution Width 14 % (10.5-15); White Blood Count 11.6 10^3/ul (3.5-10.8)
[2017-09-06 05:27] LABS: Albumin 2.5 g/dL (3.2-5.2); BUN/Creatinine Ratio 29.3 (8-20); Calcium 8.2 mg/dL (8.6-10.3); EGFR African American 31.2 (>60); EGFR Non-African American 24.2 (>60); Globulin 2.1 g/dL (2-4); Potassium 3.9 mmol/L (3.5-5.0); Total Bilirubin 0.7 mg/dL (0.2-1.0); Total Protein 4.6 g/dL (6.4-8.9)
[2017-09-06 05:36] LABS: Troponin I 0.18 ng/mL (<0.04)
[2017-09-06] MEDS: Heparin VIAL(*) 5000 UNITS/ML VIAL (FIVE THOUSAND) SUBCUT SCH ×3 (06:08→22:15)
[2017-09-06] MEDS: Aspirin SUPP* 300 MG PR SCH (08:56)
--- NOTE | 2017-09-06 10:22 | EEG ---
ELECTROENCEPHALOGRAPHY: DATE OF STUDY/DICTATION: 09/05/17 - ROOM #ICU-09 PATIENT OF: Dr. Villanueva. HISTORY: This is an 81-year-old man being evaluated for unresponsiveness to rule out seizures. MEDICATIONS: Include: 1. Aspirin. 2. Zosyn. 3. Colace. 4. Zofran. 5. Senokot. He received a dose of Keppra last night. INTERPRETATION: With the patient comatose, background cerebral activity consists of diffuse irregular delta and theta activity of moderate amplitude. At times, there were some bifrontal sharp waves. No subclinical seizures were noted. IMPRESSION: This EEG is abnormal because of diffuse slowing of background with bifrontal sharp waves consistent with a severe generalized encephalopathy. Bifrontal discharges are consistent with some underlying cerebral irritation with some risk for seizures. [id number]/[facility] #: [id number] MTDD
--- NOTE | 2017-09-06 11:02 | PN ---
Subjective Date of Service: 09/06/17 Interval History: Patient seen this morning. Some UE movement this morning, opened eyes, seemed to attempt to mouth response. Family History: Unchanged from Admission Social History: Unchanged from Admission Past Medical History: Unchanged from Admission Objective Active Medications: Acetaminophen (Tylenol Tab*) 650 mg PO Q4H PRN Aspirin (Aspirin Supp*) 300 mg SD DAILY EVAN Docusate Sodium (Colace Cap*) 100 mg PO BID PRN Heparin Sodium (Porcine) (Heparin Vial(*)) 5,000 units SUBCUT Q8HR EVAN Piperacillin Sod/Tazobactam (Sod 3.375 gm/ Dextrose) 100 mls @ 25 mls/hr IVPB Q8H EVAN Lactated Ringer's (Lactated Ringers 1000 Ml Bag*) 1,000 mls @ 100 mls/hr IV PER RATE EVAN Piperacillin Sod/Tazobactam (Sod 3.375 gm/ Dextrose) 100 mls @ 25 mls/hr IVPB Q8H EVAN Piperacillin Sod/Tazobactam (Sod 3.375 gm/ Sodium Chloride) 100 mls @ 25 mls/ hr IVPB Q8H EVAN Ondansetron HCl (Zofran Inj*) 4 mg IV Q4H PRN Pharmacy Consult (Zosyn Per Pharmacy*) 1 note FOLLOW UP .ZOSYN PER PHARMACY EVAN Senna (Senokot Tab*) 1 tab PO BID PRN Vital Signs 09/05/17 09/05/17 09/05/17 11:00 12:00 13:00 Temperature 98.8 F 98.8 F 98.8 F Pulse Rate 80 93 Respiratory 16 16 14 Rate Blood Pressure 148/87 128/120 (mmHg) O2 Sat by Pulse 100 91 Oximetry 09/05/17 09/05/17 09/05/17 13:01 14:00 14:01 Temperature 98.8 F 98.8 F 98.8 F Pulse Rate 82 87 82 Respiratory 19 20 20 Rate Blood Pressure 100/75 114/71 (mmHg) O2 Sat by Pulse 95 98 99 Oximetry 09/06/17 09/06/17 09/06/17 05:00 06:00 07:00 Temperature 100.2 F 100.2 F 99.9 F Pulse Rate 98 106 103 Respiratory 16 23 17 Rate Blood Pressure 82/55 97/70 86/69 (mmHg) O2 Sat by Pulse 99 100 100 Oximetry 09/06/17 09/06/17 09/06/17 08:00 08:07 09:00 Temperature 99.9 F 99.9 F 98.1 F Pulse Rate 102 Respiratory 22 23 Rate Blood Pressure 104/68 81/60 (mmHg) O2 Sat by Pulse 100 Oximetry Oxygen Devices in Use Now: Nasal Cannula - 2L Appearance: Elderly, M, laying in bed in NAD Eyes: No Scleral Icterus Ears/Nose/Mouth/Throat: - - Dry MM Neck: - - Enlarged thyroid Respiratory: Symmetrical Chest Expansion and Respiratory Effort, Clear to Auscultation Cardiovascular: NL Sounds; No Murmurs; No JVD, RRR Abdominal: NL Sounds; No Tenderness; No Distention Lymphatic: No Cervical Adenopathy Extremities: No Edema Skin: No Rash or Ulcers Neurological: - - Some LUE movement this morning, pupils reactive, withdraws to pain in LEs, eyes opened, attempted to mouth response to questions Result Diagrams: 09/06/17 04:50 09/06/17 04:50 Microbiology and Other Data: . Assess/Plan/Problems-Billing Assessment: 81 yo M with reported hx of HTN and possibly dementia found unresponsive at home , found to have EDELMIRA, troponin elevation, rhabdo, lactic acidosis, remains unresponsive, withdraws to pain - Patient Problems (1) Unresponsive state Current Visit: Yes Comment: Apprecaite Neuro input. MRI shows evidence of diffuse ischemia likely from a generalized hypoperfusion, suggestive of cortical necrosis. EEG without clear epileptiform activity. Thyroid enlarged but TSH WNL. Continue ASA suppository, continue NPO. Will discuss with son today, chance of meaningful recovery does not seem likely. (2) EDELMIRA (acute kidney injury) Current Visit: Yes Comment: Rhabdo. CKs trending back down. BUN/creatinine stable, likely progressed to ATN. Decrease IVF to 100 cc/hr. (3) Troponin level elevated Current Visit: Yes Comment: Mild elevation, likely demand from prolonged unresponsive episode. Echo without any clear WMAs (4) Leukocytosis Current Visit: Yes Comment: No clear infectious etiology, will continue ABx for the time being. (5) HTN (hypertension) Current Visit: Yes Comment: Reported hx as per daughter. Monitor for now. (6) DVT prophylaxis Current Visit: Yes Comment: HSQ Status and Disposition: Will need to discuss with son to determine course of action
--- NOTE | 2017-09-06 19:03 | PN ---
Hospitalist Progress Note Spoke with son, Archie, in the evening. He has been trying to get his mother ( usp 4S) placed today which was successful. I discussed the work-up and MRI findings. Archie is very realistic and I explained there is a chance his father will not improve significantly beyond where he is right now which he understands. We will see how he does in the next 24-48 hrs and decide where to go from there. Dr. Mei to take over care tomorrow.
[2017-09-06] MEDS: ZOSYN 3.375 GM Q8H per EXTENDED INFUSION IVPB SCH ×2 (19:21)
[2017-09-06] MEDS ORDERED: ZOSYN 3.375 GM Q8H per EXTENDED INFUSION IVPB SCH ×2 (20:00)
[2017-09-06] MEDS ORDERED: Morphine INJ* 2 MG/ML 1 ML CARPUJECT IV PRN (22:00)
[2017-09-06] MEDS ORDERED: Morphine INJ* 2 MG/ML 1 ML SYRINGE (TWO MG - NEW SYRINGE VERSION) ONE (22:10)
[2017-09-06] MEDS ORDERED: Morphine INJ* 2 MG/ML 1 ML SYRINGE (TWO MG - NEW SYRINGE VERSION) IV PRN (22:21)
--- NOTE | 2017-09-06 23:47 | PN ---
NEUROLOGICAL FOLLOWUP NOTE: DATE OF SERVICE: 09/06/17 HISTORY: Rylan has had some improvement overnight, but is unable to give any history. The nurse notes that he is moving more and he seems more alert, but is still not able to communicate well. MEDICATIONS: Include: 1. Aspirin 300 rectally. 2. Piperacillin. 3. Docusate. He is unable to give any history. PHYSICAL EXAMINATION: Temperature 99.3, pulse 90, respirations 20, blood pressure 97/67. He is clearly opening eyes today. It is unclear. I cannot tell whether he fixes and follows, when I said hi to him in a loud voice, he mumbled something in response. It is unclear if it was a word or not. Pupils were reactive today, but he did not fix and follow clearly. He had significant facial expressions. He was without any clear asymmetry there. He shrugged both shoulders and moved both arms spontaneously and he moved his left foot spontaneously and left leg spontaneously against some gravity. His right foot moves slightly. It is unclear how much strength he has since he was unable to cooperate with any commands. Toes were equivocal to upgoing. Chest: Clear. Cardiovascular: Regular rate and rhythm. Abdomen: Soft with positive bowel sounds. I reviewed his MRI scan last night and spoke to Dr. Jack last night regarding it. It did show diffuse, most likely ischemic process in the frontal lobes, posterior parietal and occipital lobes bilaterally. His labs today include white count of 11.6, hematocrit of 35, platelets of 357,000. INR 1.15. Sodium 147, bicarb of 19, BUN of 75, creatinine 2.56 increased from yesterday. Calcium of 8.2. AST 138, ALT 98. CPK was decreased to 2665 with a troponin of 0.18. I discussed with Dr. Jack and I had a call to the son to discuss further that Mr. Schwartz appears to have sustained a diffuse hypoxic ischemic insult most likely from a hypoperfusion event that affected his brain diffusely and I wonder from his clinical appearance whether his brain stem was affected more than his cerebrum, although since the MRI scan may not have shown the full extent of his injury, he has clearly improved both in terms of level of alertness today as well as that he is moving arms and legs today whereas yesterday he was not. It is too soon to know how much of an improvement he will make and we will continue to observe. He will continue on his aspirin. Thank you for sharing his case. [id number]/[facility] #: [id number] JOLLY
[2017-09-07] MEDS: ZOSYN 3.375 GM Q8H per EXTENDED INFUSION IVPB SCH ×2 (05:12)
[2017-09-07 07:15] LABS: Albumin 2.6 g/dL (3.2-5.2); BUN/Creatinine Ratio 34.8 (8-20); Calcium 8.2 mg/dL (8.6-10.3); EGFR African American 34.8 (>60); Potassium 3.4 mmol/L (3.5-5.0); Total Bilirubin 0.7 mg/dL (0.2-1.0); Total Protein 4.6 g/dL (6.4-8.9)
[2017-09-07] MEDS: Heparin VIAL(*) 5000 UNITS/ML VIAL (FIVE THOUSAND) SUBCUT SCH ×3 (08:52→23:55)
[2017-09-07] MEDS: Aspirin SUPP* 300 MG PR SCH (09:06)
[2017-09-07] MEDS: D5W 1000 ML BAG* 1,000 ML IV SCH ×2 (09:59→23:58)
--- NOTE | 2017-09-07 10:21 | PN ---
Subjective Date of Service: 09/07/17 Interval History: HOSPITALIST PROGRESS NOTE Patient seen and examined at bedside. He's more alert and awake today, mumbling words, thinks he's at "[place]" when I asked where he's at. Trying to remove his mittens. Family History: Unchanged from Admission Social History: Unchanged from Admission Past Medical History: Unchanged from Admission Objective Active Medications: Acetaminophen (Tylenol Tab*) 650 mg PO Q4H PRN PRN Reason: FEVER/PAIN Aspirin (Aspirin Supp*) 300 mg [place] DAILY [facility], [facility] Last Admin: 09/07/17 09:06 Dose: 300 mg Docusate Sodium (Colace Cap*) 100 mg PO BID PRN PRN Reason: CONSTIPATION Heparin Sodium (Porcine) (Heparin Vial(*)) 5,000 units SUBCUT Q8HR FOR[facility]LY [facility], [facility] Last Admin: 09/07/17 08:52 Dose: 5,000 units Dextrose (D5w 1000 Ml Bag*) 1,000 mls @ 100 mls/hr IV PER RATE [facility], [facility] Last Admin: 09/07/17 09:59 Dose: 100 mls/hr Potassium Chloride (Potassium Chloride 10 Meq/50 Ml Ivpremix*) 10 meq in 50 mls @ 50 mls/hr IV Q2H [facility], [facility] Stop: 09/07/17 12:59 Morphine Sulfate (Morphine Inj (Syringe)*) 1 mg IV Q4H PRN PRN Reason: PAIN Ondansetron HCl (Zofran Inj*) 4 mg IV Q4H PRN PRN Reason: NAUSEA/VOMITING Senna (Senokot Tab*) 1 tab PO BID PRN PRN Reason: CONSTIPATION Vital Signs 09/07/17 09/07/17 09/07/17 09:00 10:00 10:01 Temperature 97.9 F 98.1 F 98.1 F Pulse Rate 79 86 88 Respiratory 13 12 13 Rate Blood Pressure 135/79 148/91 (mmHg) O2 Sat by Pulse 100 100 100 Oximetry Oxygen Devices in Use Now: Nasal Cannula - 2 liters Appearance: Elderly male lying in bed in NAD. Eyes: No Scleral Icterus Ears/Nose/Mouth/Throat: - - Mucous membranes are dry Neck: Trachea Midline Respiratory: Symmetrical Chest Expansion and Respiratory Effort, Clear to Auscultation Cardiovascular: RRR - Normal S1 and S2 Abdominal: NL Sounds; No Tenderness; No Distention Neurological: - - Alert and awake, oriented to self only, GARRISON Result Diagrams: 09/06/17 04:50 09/07/17 06:20 Assess/Plan/Problems-Billing Assessment: Mr. 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 - Patient Problems (1) Cerebral hypoperfusion Comment: - Etiology is unclear at this time, but Neurology suspect a systemic event (?cardiac arrhythmia) causing poor perfusion. - Improving. - Continue supportive care. - PT/OT/Speech pathology evaluation. (2) EDELMIRA (acute kidney injury) Comment: - Secondary to rhabdo associated with prolonged time down. - CKs trending back down. - Renal function trending down. - Change IVF to D5W at 100 cc/hr and monitor sodium. (3) Hypernatremia Comment: - Secondary to severe dehydration. - Change IVF to D5W and monitor. (4) Troponin level elevated Comment: - Mild elevation, likely demand from prolonged unresponsive episode and rhabdo. - Echo showed EF 60-65% with no reported wall motion abnormalities. (5) DVT prophylaxis Comment: - SQ heparin. (6) DNR (do not resuscitate) Current Visit: Yes Status: Acute Status and Disposition: Inpatient. Transfer to Telemetry floor.
[2017-09-07] MEDS: KCL 10 MEQ/50 ML IVPREMIX* 10 MEQ/50 ML BAG IV SCH ×2 (10:32→11:42)
[2017-09-07 16:07] LABS: BUN/Creatinine Ratio 36.6 (8-20); Calcium 7.9 mg/dL (8.6-10.3); EGFR African American 43.7 (>60); Potassium 3.2 mmol/L (3.5-5.0)
[2017-09-07] MEDS ORDERED: ZOSYN 3.375 GM Q8H per EXTENDED INFUSION IVPB SCH ×2 (20:00)
[2017-09-08 00:18] LABS: Calcium 8.6 mg/dL (8.6-10.3); EGFR African American 52.1 (>60); EGFR Non-African American 40.5 (>60); Potassium 3.3 mmol/L (3.5-5.0)
--- NOTE | 2017-09-08 04:59 | PN ---
NEUROLOGICAL FOLLOWUP NOTE: DATE OF VISIT / DICTATION: 09/07/17 PATIENT OF: Dr. Fox. HISTORY: This is an 81-year-old man who is waking up and is able to talk in brief sentences now, when asked if he is doing good, he states I am not doing good, but he did not have any specific complaints and was somewhat confused. MEDICATIONS: His medications continued to be: 1. Aspirin 300 mg. 2. Antibiotics. 3. Colace 100 mg twice a day. LABORATORY DATA: His labs from today include a white count of 11.6, hematocrit of 35, platelet count of 157. INR 1.15. Chemistries, sodium is 152, bicarb of 121, BUN 81, creatinine 2.3, glucose 111, calcium 8.2, ALT was improved to 109, AST 95. PHYSICAL EXAMINATION: Temperature 98.4, pulse 94, respirations 9, blood pressure 135/85. He had eyes opened, although his right eye was slightly less opened than his left. He was awake and alert, but confused and did not fully cooperate, talking with good answer things and mumbled things from time to time. He did not move extremities on command other than one time he moved his foot apparently on command, but when I was assist observing him, he moved all extremities with power and the nurses note this as well. Cranial nerves II through XII showed other than droopy right eyelid, symmetric faces, full extraocular movements. Pupils equal, round and reactive. Motor exam revealed that he moved all extremities with at least 4/5 power and is not cooperative. Sensation grossly intact to stimulation. Chest: Clear. Cardiovascular: Regular rate and rhythm. Abdomen is soft. IMPRESSION AND PLAN: I discussed with Dr. Fox that he can be transferred from the unit today that he has had what seems like a diffuse severe hypoxic ischemic insult with diffuse brain injury, but making a good recovery to this point, although it is hard to know what is eventual helpful his recovery will be. I think the most likely thing would have been a hypoperfusion event. Once he is better hydrated and his kidneys have recovered from the variety of insults he has had and possibly getting a CT of head and neck could see if there is underlying vascular disease that could have contributed to some of the ischemia, but the ischemia was due to diffuse process. We will keep him on aspirin and I will sign out to the next neurologist who will see him on occasion. [id number]/CPS #: [id number] JOLLY
[2017-09-08 06:14] LABS: Hematocrit 28 % (42-52); Hemoglobin 9.7 g/dl (14.0-18.0); Mean Corpuscular HGB Conc 35 g/dl (31-36); Mean Corpuscular Hemoglobin 31 pg (27-31); Mean Corpuscular Volume 89 fL (80-94); Mean Platelet Volume 8 um3 (7.4-10.4); Red Blood Count 3.15 10^6/ul (4.0-5.4); Red Cell Distribution Width 14 % (10.5-15); White Blood Count 8.4 10^3/ul (3.5-10.8)
[2017-09-08] MEDS: Heparin VIAL(*) 5000 UNITS/ML VIAL (FIVE THOUSAND) SUBCUT SCH ×3 (06:28→21:28)
[2017-09-08 06:29] LABS: BUN/Creatinine Ratio 39.6 (8-20); Calcium 7.9 mg/dL (8.6-10.3); EGFR African American 63.1 (>60); Potassium 3.2 mmol/L (3.5-5.0)
[2017-09-08] MEDS: D5W 1000 ML BAG* 1,000 ML IV SCH ×2 (09:06→17:42)
[2017-09-08] MEDS: Aspirin EC Low Dose* 81 MG TAB.EC PO SCH (09:07)
[2017-09-08] MEDS: KCL 10 MEQ/50 ML IVPREMIX* 10 MEQ/50 ML BAG IV SCH ×3 (09:07→12:52)
[2017-09-08] MEDS: Potassium Chloride LIQUID* 20 MEQ PACKET PO SCH (09:07)
[2017-09-08 10:00] LABS: BUN/Creatinine Ratio 42.5 (8-20); Calcium 8.3 mg/dL (8.6-10.3); EGFR Non-African American 54.4 (>60); Potassium 3.2 mmol/L (3.5-5.0)
[2017-09-08 11:38] LABS: Magnesium 2.6 mg/dL (1.9-2.7)
[2017-09-08 15:01] LABS: Potassium 3.4 mmol/L (3.5-5.0)
[2017-09-08 15:02] LABS: EGFR African American 76.2 (>60); EGFR Non-African American 59.2 (>60)
--- NOTE | 2017-09-08 16:34 | PN ---
Subjective Date of Service: 09/08/17 Interval History: HOSPITALIST PROGRESS NOTE Patient seen and examined at bedside. Unchanged from yesterday. Opens eyes when called, answer yes/no questions. States he's not hungry or thirsty, just feels tired. Family History: Unchanged from Admission Social History: Unchanged from Admission Past Medical History: Unchanged from Admission Objective Active Medications: Acetaminophen (Tylenol Tab*) 650 mg PO Q4H PRN PRN Reason: FEVER/PAIN Aspirin (Aspirin Ec Low Dose*) 81 mg PO DAILY [facility] Last Admin: 09/08/17 09:07 Dose: 81 mg Docusate Sodium (Colace Cap*) 100 mg PO BID PRN PRN Reason: CONSTIPATION Heparin Sodium (Porcine) (Heparin Vial(*)) 5,000 units SUBCUT Q8HR [facility] Last Admin: 09/08/17 13:51 Dose: 5,000 units Dextrose (D5w 1000 Ml Bag*) 1,000 mls @ 150 mls/hr IV PER RATE [facility] Last Admin: 09/08/17 09:06 Dose: 150 mls/hr Morphine Sulfate (Morphine Inj (Syringe)*) 1 mg IV Q4H PRN PRN Reason: PAIN Ondansetron HCl (Zofran Inj*) 4 mg IV Q4H PRN PRN Reason: NAUSEA/VOMITING Potassium Chloride (Klor-Con Liquid*) 40 meq PO DAILY [facility] Last Admin: 09/08/17 09:07 Dose: 40 meq Senna (Senokot Tab*) 1 tab PO BID PRN PRN Reason: CONSTIPATION Vital Signs 09/08/17 13:48 Temperature 98.1 F Pulse Rate 84 Respiratory 16 Rate Blood Pressure 147/76 (mmHg) O2 Sat by Pulse 98 Oximetry Oxygen Devices in Use Now: None Appearance: Elderly thin male lying in bed in [facility]. Eyes: No Scleral Icterus Ears/Nose/Mouth/Throat: - - Dry mucous membrane Neck: Trachea Midline Respiratory: Symmetrical Chest Expansion and Respiratory Effort, Clear to Auscultation Cardiovascular: RRR Abdominal: NL Sounds; No Tenderness; No Distention - S1 and S2 Neurological: - - Lethargic, arousable to voice, GARRISON, but does not follow commands consistently Result Diagrams: 09/08/17 06:07 09/08/17 14:36 Assess/Plan/Problems-Billing Assessment: Mr. 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 - Patient Problems (1) Cerebral hypoperfusion Comment: - Etiology is unclear at this time, but Neurology suspect a systemic event (?cardiac arrhythmia) causing poor perfusion. - Improving. - Continue supportive care. - PT/OT/Speech pathology evaluation. (2) EDELMIRA (acute kidney injury) Comment: - Secondary to rhabdo associated with prolonged time down. - CKs trending back down. - Renal function trending down. - Continue D5W and monitor renal function. (3) Hypernatremia Comment: - Secondary to severe dehydration. - Continue D5W and monitor. (4) Troponin level elevated Comment: - Mild elevation, likely demand from prolonged unresponsive episode and rhabdo. - Echo showed EF 60-65% with no reported wall motion abnormalities. (5) DVT prophylaxis Comment: - SQ heparin. (6) DNR (do not resuscitate) Current Visit: Yes Status: Acute Status and Disposition: Inpatient.
--- NOTE | 2017-09-08 17:54 | PN ---
Hospitalist Progress Note HOSPITALIST ADDENDUM Called by RN because patient had a 30s episode of apnea. During the episode he had no significant arrhythmias on Telemetry, did not respond to sternal rub, but had spontaneous return of his respirations. D/w Neurology (Dr. Mata) - we agree he likely developed central sleep apnea secondary to his initial hypoxemic insult. Son updated at bedside - we're going to check overnight oximetry to qualify him for CPAP. Will have low threshold to start CPAP at night if he continues to have apnea episodes. Son is very clear his father would not want invasive or aggressive measures. If he can't tolerate CPAP would not escalate measures. Son understands his PO intake is very poor and is not enough to sustain him. Very clear patient would not want a feeding tube. We're going to monitor him over the weekend, but if he doesn't have any significant improvement, plan is for Hospice evaluation on Sunday.
[2017-09-09] MEDS: D5W 1000 ML BAG* 1,000 ML IV SCH ×2 (03:12→10:22)
[2017-09-09] MEDS: Heparin VIAL(*) 5000 UNITS/ML VIAL (FIVE THOUSAND) SUBCUT SCH ×3 (05:44→20:03)
[2017-09-09 06:50] LABS: BUN/Creatinine Ratio 35.6 (8-20); Calcium 8.3 mg/dL (8.6-10.3); EGFR African American 91.2 (>60); EGFR Non-African American 70.9 (>60); Potassium 3.4 mmol/L (3.5-5.0)
[2017-09-09] MEDS ORDERED: Magnesium Sulfate 2 GM IV* 2 GM/50 ML BAG IVPB ONE (08:38)
[2017-09-09] MEDS ORDERED: KCL 10 MEQ/50 ML IVPREMIX* 10 MEQ/50 ML BAG IV SCH (09:00)
[2017-09-09] MEDS: Aspirin EC Low Dose* 81 MG TAB.EC PO SCH (10:24)
[2017-09-09] MEDS: Potassium Chloride LIQUID* 20 MEQ PACKET PO SCH (12:27)
[2017-09-09] MEDS ORDERED: NS 0.9% IVPB ONE (13:00)
[2017-09-09] MEDS ORDERED: POTASSIUM CHLORIDE IVPB ONE (13:00)
--- NOTE | 2017-09-09 18:23 | PN ---
Subjective Date of Service: 09/09/17 Interval History: HOSPITALIST PROGRESS NOTE Patient seen and examined at bedside. Arousable to voice, confused, did not offer complaints. No further episodes of apnea. Family History: Unchanged from Admission Social History: Unchanged from Admission Past Medical History: Unchanged from Admission Objective Active Medications: Acetaminophen (Tylenol Tab*) 650 mg PO Q4H PRN PRN Reason: FEVER/PAIN Aspirin (Aspirin Ec Low Dose*) 81 mg PO DAILY [facility] Last Admin: 09/09/17 10:24 Dose: 81 mg Docusate Sodium (Colace Cap*) 100 mg PO BID PRN PRN Reason: CONSTIPATION Heparin Sodium (Porcine) (Heparin Vial(*)) 5,000 units SUBCUT Q8HR [facility] Last Admin: 09/09/17 14:10 Dose: 5,000 units Dextrose (D5w 1000 Ml Bag*) 1,000 mls @ 150 mls/hr IV PER RATE [facility] Last Admin: 09/09/17 10:22 Dose: 150 mls/hr Morphine Sulfate (Morphine Inj (Syringe)*) 1 mg IV Q4H PRN PRN Reason: PAIN Ondansetron HCl (Zofran Inj*) 4 mg IV Q4H PRN PRN Reason: NAUSEA/VOMITING Potassium Chloride (Klor-Con Liquid*) 40 meq PO DAILY [facility] Last Admin: 09/09/17 12:27 Dose: Not Given Senna (Senokot Tab*) 1 tab PO BID PRN PRN Reason: CONSTIPATION Vital Signs 09/09/17 09/09/17 11:21 15:20 Temperature 98.0 F 99.8 F Pulse Rate 79 73 Respiratory 16 16 Rate Blood Pressure 116/61 (mmHg) O2 Sat by Pulse 100 98 Oximetry Oxygen Devices in Use Now: None Appearance: Elderly male lying in bed in NAD. Eyes: No Scleral Icterus Ears/Nose/Mouth/Throat: - - dry mucous membranes Neck: Trachea Midline Respiratory: Symmetrical Chest Expansion and Respiratory Effort, Clear to Auscultation Cardiovascular: RRR - Normal S1 and S2 Abdominal: NL Sounds; No Tenderness; No Distention Neurological: - - Alert and awake, oriented to self, GARRISON, doesn't follow commands consistently Result Diagrams: 09/08/17 06:07 09/09/17 05:53 Assess/Plan/Problems-Billing Assessment: Mr. 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 - Patient Problems (1) Delirium Comment: - Patient is getting combative and agitated at night - suspect . - Haldol PRN agitation. - Try to avoid benzos. (2) Cerebral hypoperfusion Comment: - Etiology is unclear at this time, but Neurology suspect a systemic event (?cardiac arrhythmia) causing poor perfusion. - Improving. - Continue supportive care. - PT/OT/Speech pathology evaluation. (3) Central sleep apnea Comment: - Patient had 2 episodes of apnea yesterday lasting 30 seconds, thought to be secondary to central sleep apnea. Overnight oximetry performed, but patient has had no further episodes so far. - Continue to monitor. (4) EDELMIRA (acute kidney injury) Comment: - Secondary to rhabdo associated with prolonged time down. - CKs trending back down. - Renal function trending down. - Continue D5W and monitor renal function. (5) Hypernatremia Comment: - Secondary to severe dehydration. - Trending down. - Continue D5W and monitor. (6) Troponin level elevated Comment: - Mild elevation, likely demand from prolonged unresponsive episode and rhabdo. - Echo showed EF 60-65% with no reported wall motion abnormalities. (7) DVT prophylaxis Comment: - SQ heparin. (8) DNR (do not resuscitate) (9) End of life care Comment: - Lengthy conversation with patient's son about his condition and prognosis. Son is very clear patient would not want any aggressive or invasive measures. - As his PO intake continues to be poor and patient would not want fedding tubes , son is interested in Hospice. Status and Disposition: Inpatient.
[2017-09-09] MEDS ORDERED: Haloperidol INJ IV/IM* 5 MG/ML AMP ONE (18:31)
[2017-09-09] MEDS: Haloperidol INJ IV/IM* 5 MG/ML AMP IM PRN (18:33)
[2017-09-09] MEDS ORDERED: D5W 1000 ML BAG* 1,000 ML IV SCH (18:34)
--- NOTE | 2017-09-10 02:50 | PN ---
Progress Note - Progress Note Date of Service: 09/10/17 Note: Paged for dark tarry stool. Will check CBC. D/C ASA and Heparin SQ. Send hemoccult stool. Order SCDs.
[2017-09-10 03:44] LABS: Hematocrit 25 % (42-52); Hemoglobin 8.8 g/dl (14.0-18.0); Mean Corpuscular HGB Conc 36 g/dl (31-36); Mean Corpuscular Hemoglobin 31 pg (27-31); Mean Corpuscular Volume 87 fL (80-94); Mean Platelet Volume 7 um3 (7.4-10.4); Red Blood Count 2.85 10^6/ul (4.0-5.4); Red Cell Distribution Width 14 % (10.5-15); White Blood Count 6.6 10^3/ul (3.5-10.8)
[2017-09-10 04:02] LABS: BUN/Creatinine Ratio 29.9 (8-20); EGFR African American 108.3 (>60); EGFR Non-African American 84.2 (>60); Potassium 3.2 mmol/L (3.5-5.0)
[2017-09-10] MEDS ORDERED: D5W 1000 ML BAG* 1,000 ML IV SCH (07:44)
[2017-09-10] MEDS: Potassium Chloride LIQUID* 20 MEQ PACKET PO SCH (08:31)
--- NOTE | 2017-09-10 13:55 | PN ---
Subjective Date of Service: 09/10/17 Interval History: HOSPITALIST PROGRESS NOTE Patient seen and examined at bedside. Very alert and awake today, sitting on his chair, watching TV. Mental status has fluctuated, with periods of lethargy. Became very agitated last night requiring Haldol and also had one episode of tarry stools, but does not recall it. Family History: Unchanged from Admission Social History: Unchanged from Admission Past Medical History: Unchanged from Admission Objective Active Medications: Acetaminophen (Tylenol Tab*) 650 mg PO Q4H PRN PRN Reason: FEVER/PAIN Docusate Sodium (Colace Cap*) 100 mg PO BID PRN PRN Reason: CONSTIPATION Haloperidol Lactate (Haldol Inj Iv/Im*) 5 mg IM Q6H PRN PRN Reason: AGITATION Last Admin: 09/09/17 18:33 Dose: 5 mg Dextrose (D5w 1000 Ml Bag*) 1,000 mls @ 75 mls/hr IV PER RATE [facility] Last Admin: 09/10/17 12:54 Dose: 75 mls/hr Morphine Sulfate (Morphine Inj (Syringe)*) 1 mg IV Q4H PRN PRN Reason: PAIN Potassium Chloride (Klor-Con Liquid*) 40 meq PO DAILY [facility] Last Admin: 09/10/17 08:31 Dose: Not Given Senna (Senokot Tab*) 1 tab PO BID PRN PRN Reason: CONSTIPATION Vital Signs 09/10/17 09/10/17 09:03 11:46 Temperature 98.0 F 97.1 F Pulse Rate 76 83 Respiratory 16 16 Rate Blood Pressure 142/70 114/69 (mmHg) O2 Sat by Pulse 99 98 Oximetry Oxygen Devices in Use Now: None Appearance: Elderly male sitting up in a chair in [facility]. Eyes: No Scleral Icterus Ears/Nose/Mouth/Throat: Mucous Membranes Moist Neck: Trachea Midline Respiratory: Symmetrical Chest Expansion and Respiratory Effort, Clear to Auscultation Cardiovascular: RRR - Normal S1 and S2 Neurological: - - AAOx1 (self) GARRISON Result Diagrams: 09/10/17 03:35 09/10/17 03:35 Assess/Plan/Problems-Billing Assessment: Mr. 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 - Patient Problems (1) Delirium Comment: - Patient is getting combative and agitated at night - suspect ing. - Haldol PRN agitation. - Try to avoid benzos. (2) Cerebral hypoperfusion Comment: - Etiology is unclear at this time, but Neurology suspect a systemic event (?cardiac arrhythmia) causing poor perfusion. - Improving. - Continue supportive care. (3) Central sleep apnea Comment: - Patient had 2 episodes of apnea yesterday lasting 30 seconds, thought to be secondary to central sleep apnea. Overnight oximetry performed, but patient has had no further episodes so far. - Continue to monitor. (4) EDELMIRA (acute kidney injury) Comment: - Secondary to rhabdo associated with prolonged time down. - CKs trending back down. - Resolved. (5) Hypernatremia Comment: - Secondary to severe dehydration. - Trending down. - D/c IVF. (6) Troponin level elevated Comment: - Mild elevation, likely demand from prolonged unresponsive episode and rhabdo. - Echo showed EF 60-65% with no reported wall motion abnormalities. (7) DVT prophylaxis Comment: - SQ heparin. (8) DNR (do not resuscitate) (9) End of life care Comment: - Lengthy conversation with patient's son about his condition and prognosis. Son is very clear patient would not want any aggressive or invasive measures. - As his PO intake continues to be poor and patient would not want fedding tubes , son is interested in Hospice. Status and Disposition: Inpatient.
--- NOTE | 2017-09-11 10:42 | PN ---
Subjective Date of Service: 09/11/17 Interval History: HOSPITALIST PROGRESS NOTE Patient seen and examined at bedside. He is alert and awake, but did not talk to me today. Appears to be comfortable. Family History: Unchanged from Admission Social History: Unchanged from Admission Past Medical History: Unchanged from Admission Objective Active Medications: Acetaminophen (Tylenol Tab*) 650 mg PO Q4H PRN PRN Reason: FEVER/PAIN Last Admin: 09/11/17 03:06 Dose: 650 mg Docusate Sodium (Colace Cap*) 100 mg PO BID PRN PRN Reason: CONSTIPATION Haloperidol Lactate (Haldol Inj Iv/Im*) 5 mg IM Q6H PRN PRN Reason: AGITATION Last Admin: 09/09/17 18:33 Dose: 5 mg Morphine Sulfate (Morphine Inj (Syringe)*) 1 mg IV Q4H PRN PRN Reason: PAIN Senna (Senokot Tab*) 1 tab PO BID PRN PRN Reason: CONSTIPATION Vital Signs - 8 hr 09/11/17 09/11/17 09/11/17 02:39 02:45 07:37 Temperature 100.2 F 98.3 F Pulse Rate 84 72 Respiratory 16 16 16 Rate Blood Pressure 160/80 146/73 (mmHg) O2 Sat by Pulse 99 97 Oximetry Oxygen Devices in Use Now: None Appearance: Elderly male lying in bed in NAD. Eyes: No Scleral Icterus Ears/Nose/Mouth/Throat: Mucous Membranes Moist Neck: Trachea Midline Respiratory: Symmetrical Chest Expansion and Respiratory Effort, Clear to Auscultation Cardiovascular: RRR - Normal S1 and S2 Neurological: - - Alert and awake, mumbling words, GARRISON but doesn't follow commands Result Diagrams: 09/10/17 03:35 09/10/17 03:35 Assess/Plan/Problems-Billing Assessment: Mr. 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 - Patient Problems (1) Delirium Comment: - Agitation secondary to sundowning. - Haldol PRN agitation. - Try to avoid benzos. (2) Cerebral hypoperfusion Comment: - Etiology is unclear at this time, but Neurology suspect a systemic event (?cardiac arrhythmia) causing poor perfusion. - Continue supportive care. (3) EDELMIRA (acute kidney injury) Comment: - Secondary to rhabdo associated with prolonged time down. - Resolved. (4) Hypernatremia Comment: - Secondary to severe dehydration. - Trending down. - D/c IVF. (5) Troponin level elevated Comment: - Mild elevation, likely demand from prolonged unresponsive episode and rhabdo. - Echo showed EF 60-65% with no reported wall motion abnormalities. (6) DVT prophylaxis Comment: - SQ heparin. (7) DNR (do not resuscitate) (8) End of life care Comment: - Plan for SNF placement with Hospice. Status and Disposition: Inpatient.
[2017-09-11] MEDS: Haloperidol INJ IV/IM* 5 MG/ML AMP IM PRN (21:07)
[2017-09-12 08:18] VITALS: BP 157/73
--- NOTE | 2017-09-12 09:03 | DS ---
CC: Dr. Juwan Stephenson; [facility]. * DISCHARGE SUMMARY: DATE OF ADMISSION: 09/04/17 DATE OF DISCHARGE: 09/12/17 PRIMARY CARE PROVIDER: Dr. Juwan Stephenson. DISCHARGE DIAGNOSES: 1. Cerebral hyperperfusion. 2. Delirium. 3. Rhabdomyolysis. 4. Acute kidney injury. 5. Hypernatremia. 6. Troponin elevation. 7. Dehydration. SECONDARY DIAGNOSES: 1. Hypertension. 2. Possible dementia. MEDICATION LIST: 1. Acetaminophen 650 mg p.o. q.4 hours p.r.n. pain or fever. 2. Colace 100 mg p.o. b.i.d. p.r.n. constipation. 3. Haldol 1 mg p.o. t.i.d. p.r.n. agitation. 4. Lorazepam 1 mg p.o. q.8 hours p.r.n. severe agitation or anxiety. 5. Morphine concentrate 5 mg sublingual q.2 hours p.r.n. pain or tachypnea with respiratory rate greater than 24. 6. Senna one tablet p.o. b.i.d. p.r.n. constipation. HOSPITAL COURSE: Mr. Schwartz is an 81-year-old male with a past medical history as stated above who was brought into the emergency room by EMS after police found him unresponsive in his chair. As per HPI, the patient has had progressive decline in his condition, and dementia was suspected. Apparently, a week prior to admission, he drove to the pharmacy and left his car behind at the parking lot and walked back home. Police went to check on the abandoned car , and at that time he was at home, alert and oriented; and, although they recommended he come to the emergency room, he refused. Later on, the pharmacy called the police again to report the same car and to have it towed. Police realized it was the same person, went to his apartment, and found him sitting in a chair unresponsive with labored and shallow breathing. For more details about his presentation, I refer to his history and physical. In the emergency room, the patient had a CT of the brain that showed mild chronic microvascular ischemic changes, but no acute findings. An MRI of the brain showed fairly symmetric restriction of defusion primarily involving the cortices of the frontal lobes, posterior parietal lobes, and occipital lobes bilaterally. Corresponding decrease in the ADC map is noted, suggestive of cortical laminar necrosis from hyperperfusion from cardiac arrest, hypoglycemia , or status epilepticus. The patient was seen in consultation by neurology (Dr. Montilla), and his impression was that the patient had severe encephalopathy as well as absence of movement in all extremities other than typical withdrawal presumably from spinal reflex in his legs. This picture would either be secondary to diffuse generalized cerebral dysfunction or possibly due to brain stem dysfunction causing bilateral symptoms and significant alteration of consciousness. He felt that this was most likely an ischemic rather than infectious event. 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 The patient was admitted to the intensive care unit for further management, and he was unresponsive for a couple of days; but, on 09/07/17, he became more alert, but never returned to his baseline. He mumbles words. He is oriented to self only , and his mental status continues to fluctuate. The etiology of the episode is still unclear. Cardiac arrhythmia would be a possibility. His transthoracic echocardiogram showed ejection fraction of 60% to 65% with no significant wall motion abnormalities. I believe his troponin elevation is most likely secondary to demand ischemia and rhabdomyolysis, but does not necessarily represent an acute coronary event. I had a long conversation with the patient's son, who is his healthcare proxy, who states that the patient's condition was already declining prior to this episode and they had had conversations in the past that the patient would not want any aggressive measures including a feeding tube; so, at that point, a hospice consultation was requested, and it was felt that the patient would qualify for it. The plan is for him to be discharged to [facility] today to be signed on with hospice. Also of note - during the hospice stay, the patient had two episodes of apnea felt to be secondary to central sleep apnea associated with his ischemic event, but those have not happened for the last 48 hours. The patient also had one episode of tarry black stool, and his aspirin was discontinued for that reason, but no further workup will be pursued as the goal now is for comfort only. PHYSICAL EXAMINATION: Vital Signs: Temperature 99, heart rate 71, respiratory rate 16, oxygen saturation 98%, blood pressure 155/61. General: The patient is an elderly male, lying in bed in no acute distress. CVS: Normal S1 and S2. Regular rate and rhythm. Chest: Breath sounds bilaterally, no added sounds. Extremities: No edema. Neurologic: He is arousable, oriented to self only. Able to move all 4 extremities, but he does not follow commands. DIET: Regular diet for comfort. ACTIVITIES: As tolerated. DISPOSITION: To [facility] with hospice. STATUS WHILE IN THE HOSPITAL: Inpatient. If you need more information, please feel free to call me at [phone] or please obtain the full medical records. TIME SPENT: Approximately 45 minutes were spent to complete this discharge. [id number] #: [id number] JOLLY
[2017-09-12] MEDS ORDERED: Haloperidol TAB* 2 MG PO ONE (10:08)
== END 2017-09-12 10:38 | DRG 69 ==
LOC: ED 18:34 → ICU 22:08 → MEDTELE 09-07 15:08 → MED 09-10 16:58
PROVIDERS: ADMIT Pediatrics; ATTEND Internal Medicine
PROC: 4A00X4Z Measurement of Central Nervous Electrical Activity, External Approach (ICD-10-PCS; principal; 2017-09-05)
DX: I67.82 Cerebral ischemia (principal); G93.49 Other encephalopathy; G82.50 Quadriplegia, unspecified; N17.9 Acute kidney failure, unspecified; E87.0 Hyperosmolality and hypernatremia; M62.82 Rhabdomyolysis; G93.89 Other specified disorders of brain; E87.2 Acidosis; F05 Delirium due to known physiological condition; I24.8 Other forms of acute ischemic heart disease; I10 Essential (primary) hypertension; F03.90 Unspecified dementia, unspecified severity, without behavioral disturbance, psychotic disturbance, mood disturbance, and anxiety; I45.10 Unspecified right bundle-branch block; K57.90 Diverticulosis of intestine, part unspecified, without perforation or abscess without bleeding; M51.36 Other intervertebral disc degeneration, lumbar region; E86.0 Dehydration; Z66 Do not resuscitate; H02.401 Unspecified ptosis of right eyelid; G47.31 Primary central sleep apnea; R74.8 Abnormal levels of other serum enzymes; I67.89 Other cerebrovascular disease; I49.9 Cardiac arrhythmia, unspecified; Z82.49 Family history of ischemic heart disease and other diseases of the circulatory system
CPT/HCPCS: 36415; 36600; 70250; 70450; 70551; 71010; 72125; 72128; 72131; 74000; 80048; 80053; 81003; 81015; 82140; 82150; 82272; 82550; 82803; 83605; 83690; 83735; 84443; 84484; 85025; 85610; 85730; 86140; 87040; 87641; 93005; 93306; 94762; 95822; A9270-GY; C8929; J1630; J1644; J2270; J2543; J3475; J3480